=== PATIENT | male | born 1975 | race Caucasian/White ===

== ENCOUNTER → 2020-05-14 | Outpatient (CLI) | payer OTHER ==
[2020-07-07 11:18] LABS: HEMATOCRIT 47.9 % (42.0-52.0); PLATELET COUNT, AUTOMATED 267 10^3/uL (150-450); WHITE BLOOD COUNT 7.2 10^3/uL (4.0-10.0)
[2020-07-09 04:17] LABS: BLOOD UREA NITROGEN 16 MG/DL (7-18); CALCIUM LEVEL 9.8 MG/DL (8.5-10.1); CARBON DIOXIDE LEVEL 31 MEQ/L (21-32); CHLORIDE LEVEL 107 MEQ/L (98-107); CREATININE FOR GFR 1.19 MG/DL (0.70-1.30); GLOMERULAR FILTRATION RATE > 60.0 (>60); GLUCOSE, FASTING 85 MG/DL (70-100); SODIUM LEVEL 142 MEQ/L (136-145)
== END ==
LOC: M RAD 08:16
PROVIDERS: ATTEND Orthopaedic Surgery
DX: Z01.818 Encounter for other preprocedural examination (principal); Z20.828 Contact with and (suspected) exposure to other viral communicable diseases

== ENCOUNTER → 2020-05-18 | Outpatient (CLI) | payer OTHER | LOC: M LABSMTC 09:25 | PROVIDERS: ATTEND Orthopaedic Surgery | DX: Z03.818 Encounter for observation for suspected exposure to other biological agents ruled out (principal); Z11.59 Encounter for screening for other viral diseases ==

== ENCOUNTER 2022-05-06 07:18 | Day surgery (SDC) | payer OTHER ==
[~2022-05-06] VITALS: Ht 177.8 cm; Wt 102.1 kg
[~2022-05-06 07:18] MED LIST: LEVO150T7 PO; LIOT5TAB6 PO; TIZA10TA PO; WELL100T2 PO; ceFAZolin SOD 2 GM in IV 1 EA IV ONE
[2022-05-06] MEDS ORDERED: LR 1,000 ML IV SCH ×2 (07:40→13:10)
[2022-05-06] MEDS ORDERED: MIDAZOLAM INJ 2MG/2ML VIAL (J2250 PER 1MG) As Ordered ONE (08:35)
[2022-05-06] MEDS ORDERED: fentaNYL 100 MCG/2 ML INJECTION As Ordered ONE (08:36)
[2022-05-06] MEDS ORDERED: propofoL 200 MG/20 ML VIAL As Ordered ONE (08:39)
[2022-05-06] MEDS ORDERED: dexameTHASONE 4 MG/ML 1ML VIAL (J1100 PER 1MG) As Ordered ONE ×2 (08:40→10:45)
[2022-05-06] MEDS ORDERED: LIDOCAINE 2% 100MG/5ML SDV (FOR ANES.) As Ordered ONE (08:45)
[2022-05-06] MEDS ORDERED: ROPIvacaine 0.5% 30ML INJECTION (J2795 PER 1MG) As Ordered ONE (09:23)
[2022-05-06] MEDS ORDERED: EPINEPHrine 1MG/ML INJ 30ML MD-VIAL As Ordered ONE (09:52)
[2022-05-06] MEDS ORDERED: TRANEXAMIC ACID 100 MG/ML 10ML VIAL As Ordered ONE (10:17)
[2022-05-06] MEDS ORDERED: ONDANSETRON 4MG 2ML VIAL As Ordered ONE ×2 (10:34→10:40)
[2022-05-06] MEDS ORDERED: ACETAMINOPHEN 1000MG 100ML IV BTL (OFIRMEV) (J0131 PER 10MG) As Ordered ONE (10:40)
[2022-05-06] MEDS ORDERED: KETOROLAC 60MG 2ML VIAL As Ordered ONE (10:46)
[2022-05-06] MEDS ORDERED: HYDROmorphone HCL 2MG/ML 1ML VIAL As Ordered ONE (11:07)
[2022-05-06] MEDS ORDERED: BUPIVACAINE LIPOSOME/PF 1.3% 20ML VIAL (13.3MG/ML)(EXPAREL) As Ordered ONE (12:52)
[2022-05-06] MEDS ORDERED: fentaNYL 100 MCG/2 ML INJECTION IV PRN (13:10)
[2022-05-06] MEDS ORDERED: ONDANSETRON 4MG 2ML VIAL IV PRN (13:10)
[2022-05-06] MEDS ORDERED: oxyCODONE 5MG TAB PO PRN (13:10)
[2022-05-06 14:20] VITALS: BP 124/78
== END 2022-05-06 14:40 | disposition home or self-care (01) ==
LOC: M SDC 07:18
PROVIDERS: ATTEND Orthopaedic Surgery
DX: M23.306 Other meniscus derangements, unspecified meniscus, right knee (principal); M92.521 Juvenile osteochondrosis of tibia tubercle, right leg; M94.261 Chondromalacia, right knee; E03.9 Hypothyroidism, unspecified; F43.10 Post-traumatic stress disorder, unspecified; F41.9 Anxiety disorder, unspecified; G47.33 Obstructive sleep apnea (adult) (pediatric); Z87.891 Personal history of nicotine dependence
CPT/HCPCS: 27630; 29881; 76000; 88300; C1713; C9290; J0131; J0171; J0690; J1100; J1170; J1885; J2250; J2405; J2795; J3010